=== PATIENT | female | born 1945 | race Caucasian/White ===

== ENCOUNTER 2022-07-10 10:40 | Emergency (ER) | payer MEDICARE, BC ==
[2022-07-10] MEDS ORDERED: Acetaminophen 500 MG TAB ONE (11:44)
== END 2022-07-10 12:50 | disposition home or self-care (01) ==
LOC: CSHERS 10:40
DX: M25.562 Pain in left knee (principal); M25.462 Effusion, left knee; I10 Essential (primary) hypertension

== ENCOUNTER 2023-03-14 08:00 | Outpatient (CLI) | payer MEDICARE, BC | END 2023-03-14 08:01 | disposition home or self-care (01) | LOC: CSHULT 08:00 | PROVIDERS: ATTEND Internal Medicine Gastroenterology | DX: R19.8 Other specified symptoms and signs involving the digestive system and abdomen (principal); R79.89 Other specified abnormal findings of blood chemistry; F10.10 Alcohol abuse, uncomplicated; K76.9 Liver disease, unspecified | CPT/HCPCS: 76705 ==

== ENCOUNTER 2024-04-11 10:35 | Emergency (ER) | payer MEDICARE, BC | END 2024-04-11 12:27 | disposition home or self-care (01) | LOC: CSHERS 10:35 | DX: S80.01XA Contusion of right knee, initial encounter (principal); E03.9 Hypothyroidism, unspecified; I11.0 Hypertensive heart disease with heart failure; I50.9 Heart failure, unspecified; Z79.899 Other long term (current) drug therapy; W18.30XA Fall on same level, unspecified, initial encounter | CPT/HCPCS: 99284 ==